=== PATIENT | female | born 1995 | race Caucasian/White ===

== ENCOUNTER 2023-02-08 23:41 | Emergency (ER) | payer SELFPAY ==
[2023-02-08 23:45] VITALS: BP 124/70; PULSE 69; RESP 18; TEMP 37.1; O2SAT 98
--- NOTE | 2023-02-08 23:55 | ED.FEMALEGU ---
HPI - Female Genitourinary General Chief complaint: Vaginal Bleeding Stated complaint: Urogenital Source: patient and family Mode of arrival: ambulatory Limitations: no limitations History of Present Illness HPI Narrative: This is a 27-year-old female that had 2 positive test at got hit in the side this afternoon by a shopping cart and has concerns about her current there has been some vaginal spotting with no vaginal bleeding no abdominal pain no nausea vomiting no flank pain no fever chills. Severity: mild Related Data Home Medications Medication Instructions Recorded Confirmed vits 75-iron 28 mg-folic 1 pkg PO DAILY 02/09/23 02/09/23 acid 800 mcg-omega-3 oral combo pack (One A Day Women's DHA) Allergies Allergy/AdvReac Type Severity Reaction Status Date / Time ciprofloxacin Allergy Swelling Verified 02/08/23 23:57 sulfamethoxazole Allergy Other Verified 02/08/23 23:57 [From Bactrim] trimethoprim [From Bactrim] Allergy Other Verified 02/08/23 23:57 Review of Systems Review of Systems: All systems reviewed & are unremarkable except as noted in HPI and below PMFSH Past Medical History Medical History Patient denies medical problems Exam Const: General: healthy appearing Nutritional Appearance: well nourished Orientation/consciousness: patient oriented x3 Limitations: no limitations HENMT: Head: normal to inspection Neck: Neck: normal visual inspection Chest: Chest palpation & inspection: normal inspection of the chest Resp: Effort & Inspection: normal respiratory effort Auscultation: clear to auscultation bilaterally Cardio: Rate: regular rate Rhythm: regular rhythm GI: GI Palp: Yes Soft to palpation Auscultation: normal bowel sounds : General: Yes bladder normal to palpation Urinary Catheter: Urinary Catheter: patent and draining Back/Spine/Pelvis: Back: no CVA tenderness Skin: General skin exam: normal color Rashes: no rashes Neuro: General: patient oriented x3 Cranial nerves: Yes Nystagmus not present Extrem: General: normal to inspection Psych: Appearance: grossly normal Mental Status: mental status grossly normal Course Course Emergency Course: quantitative HCG performed which shows that at about 4 to 6 weeks. Patient otherwise doing well Vital Signs Vital signs: Vital Signs Temperature 37.1 C 02/08/23 23:45 Pulse Rate 69 02/08/23 23:45 Respiratory Rate 18 02/08/23 23:45 Blood Pressure 124/70 02/08/23 23:45 Pulse Oximetry 98 02/08/23 23:45 Oxygen Delivery Room Air 02/08/23 23:45 Temperature 37.1 C 02/08/23 23:45 Pulse Rate 69 02/08/23 23:45 Respiratory Rate 18 02/08/23 23:45 Blood Pressure 124/70 02/08/23 23:45 Pulse Oximetry 98 02/08/23 23:45 Oxygen Delivery Room Air 02/08/23 23:45 Critical Care Time Critical Care Time Critical Care Time: No Discharge Plan Discharge Clinical Impression: Qualifiers: Weeks of gestation: less than 8 weeks Qualified Code(s): Z3A.01 - Less than 8 weeks gestation of Patient Disposition: Home, Self-Care Condition: Stable Instructions: Antibiotic Form, (ED) Additional Instructions: advised to follow with some OBGYN for further evaluation treatment. Prescriptions: No Action One A Day Women's DHA 28 mg iron- 800 mcg Combo Pack 1 pkg PO DAILY Follow-up/Referrals: UNKNOWN,DOCTOR [Primary Care Provider] - Time of Disposition: :06
== END 2023-02-09 01:20 | disposition home or self-care (01) ==
PROVIDERS: Emergency Provider Emergency Medicine
DX: O46.91 Antepartum hemorrhage, unspecified, first trimester (principal); Z3A.01 Less than 8 weeks gestation of pregnancy
CPT/HCPCS: 36415; 84702; 99283

== ENCOUNTER 2023-08-22 20:06 | Emergency (ER) | payer OTHER, SELFPAY ==
[2023-08-22 20:06] VITALS: BP 114/72; PULSE 105; RESP 20; TEMP 36.6; O2SAT 100
--- NOTE | 2023-08-22 20:11 | ED.FALL ---
HPI - Fall General Chief Complaint: Fall Stated Complaint: fall, tallbone pain, Time Seen by Provider: 08/22/23 20:09 Source: patient Mode of arrival: ambulatory Limitations: no limitations History of Present Illness HPI Narrative: 28-year-old who is 4-8 weeks ( unsure about her LMP) presents to the ER --after she fell on her back and presents with bilateral buttock pain. No other injuries noted. No head injury. No vaginal discharge. MD complaint: fall Onset (ago): hour(s) ( Fell 7 hours ago) Fall from: standing Place fall occurred: home Loss of consciousness: none Prolonged down time: no Symptoms prior to fall: none Context: tripped/slipped Location of injury: buttocks Quality: dull Associated symptoms (after fall): denies Related Data Home Medications Medication Instructions Recorded Confirmed vits 75-iron 28 mg-folic 1 pkg PO DAILY 02/09/23 08/22/23 acid 800 mcg-omega-3 oral combo pack (One A Day Women's DHA) Allergies Allergy/AdvReac Type Severity Reaction Status Date / Time ciprofloxacin Allergy Swelling Verified 02/08/23 23:57 sulfamethoxazole Allergy Other Verified 02/08/23 23:57 [From Bactrim] trimethoprim [From Bactrim] Allergy Other Verified 02/08/23 23:57 Review of Systems Review of Systems: All systems reviewed & are unremarkable except as noted in HPI and below Constitutional: Constitutional: Reports as per HPI and Reports no additional constitutional complaints Eyes: Eyes: Reports as per HPI and Reports no additional eye complaints ENT: Reports system reviewed and no additional complaints, except as documented and Reports as per HPI Cardiovascular: Cardiovascular: Reports as per HPI and Reports no additional cardiovascular complaints Respiratory: Respiratory: Reports as per HPI and Reports no additional respiratory complaints Gastrointestinal: Gastrointestinal: Reports as per HPI and Reports no additional gastrointestinal complaints Genitourinary: Genitourinary: Reports no additional female genitourinary complaints and Reports as per HPI Musculoskeletal: Musculoskeletal: Reports no additional musculoskeletal complaints and Reports as per HPI Comments: bilateral buttock pain. Denied any spinal pain. Integumentary/Breasts: Skin/Breast: Reports system reviewed and no additional complaints, except as docu Neurologic: Reports system reviewed and no additional complaints, except as documented and Reports as per HPI Psychiatric: Psychiatric: Reports no additional psychiatric complaints and Reports as per HPI Endocrine: Endocrine: Reports no additional endocrine complaints and Reports as per HPI Hematologic/Lymphatic: Hematologic/Lymphatic: Reports no additional hematologic/lymphatic complaints and Reports as per HPI Allergic/Immunologic: Allergic/Immunologic: Reports no additional allergic/immunologic complaints and Reports as per HPI [facility] Past Medical History Medical History Patient denies medical problems Exam Const: General: no acute distress Nutritional Appearance: well nourished Orientation/consciousness: patient oriented x3 Limitations: no limitations HENMT: Head: normal to inspection Ears: external ears normal Face/Nose/Sinus: Normal external nose present Face and sinus: normal facial exam Mouth: Yes Normal oral and palatal mucosa present Throat: posterior oropharynx normal Eyes: Conjunctivae: conjunctivae normal Pupils: Equal, round and reactive pupils present EOM: EOMs intact bilaterally Direct Ophthalmoscopy: no photophobia Neck: Neck: normal visual inspection and no lymphadenopathy Chest: Chest palpation & inspection: normal inspection of the chest and abnormal inspection of the chest Resp: Effort & Inspection: normal respiratory effort Auscultation: clear to auscultation bilaterally Cardio: Rate: regular rate Rhythm: regular rhythm GI:
[2023-08-22 20:58] LABS: Pregnancy On Board Control Positive; Urine Pregnancy Test Positive
[2023-08-22] MEDS: ACETAMINOPHEN 325 MG TABLET 500 MG PO (21:22)
--- NOTE | 2023-08-22 22:22 | PC.NURSE ---
2124- CALLED FATHER (JOANNA) ABOUT DC PATIENT, STATES HE WILL BE ON HIS WAY TO GET HER. 2209- CALLED FATHER (JOANNA) AGAIN ABOUT DC, STATES THAT HE MISPLACED HIS KEYS AND WILL BE ON HIS WAY TO GET PATIENT SOON HE CAN FIND THEM.
== END 2023-08-22 22:40 | disposition home or self-care (01) ==
PROVIDERS: Emergency Provider Internal Medicine Critical Care Medicine
DX: O26.891 Other specified pregnancy related conditions, first trimester (principal); R52 Pain, unspecified; W01.0XXA Fall on same level from slipping, tripping and stumbling without subsequent striking against object, initial encounter; Y92.009 Unspecified place in unspecified non-institutional (private) residence as the place of occurrence of the external cause
CPT/HCPCS: 81025; 99283; A9270

== ENCOUNTER 2024-03-24 16:26 | Outpatient (CLI) | payer OTHER, SELFPAY ==
--- NOTE | ~2024-03-24 | US_ITS ---
COMPLETE ULTRASOUND (Doppler ultrasound interrogation techniques used as needed for this exam.) Ordering provider: Dandy Ryan MD History: . Z34.90 - Encounter for supervision of normal , u... . Comparison: None. Findings: : Single intrauterine fetus with heart rate measured at 164 bpm which is within normal limits. The lie is longitudinal. Presentation is vertex. --SCREENING OF ANATOMY: Heart (4 chambers): Seen and unremarkable. Brain survey: Limited views with ventricles, cerebellum, cisterna magna and nuchal fold is not well d emonstrated. Abdomen: Unremarkable. The diaphragm, stomach, kidneys and bladder aren't demonstrated. Cord insertion: Unremarkable. 3 vessel cord: Present and unremarkable. Bladder: Highly suggestive keyhole bladder Kidneys: Minimal renal pelvis fullness. Spine: Unremarkable. Gender: -- BIOMETRICS: BPD: 78.2 mm = 31 weeks and 3 days. HC: 325.7 mm = 36 weeks and 6 days. FL: 70.3 mm = 36 weeks and 0 days. AC: 343.4 mm = 38 weeks and 2 days. HC/AC: 0.95. FL/BPD: 89.95. FL/AC: 20.48. Mean US age is 35 weeks and 5 days for an [place] on April 23, 2024. Extrapolated weight is 3017 g. EFW/GP 89.9 percentile. . Amniotic fluid volume is subjectively within normal limits. JHOAN is 5.8 cm. 5th percentile 7.9 cm. 9 55th percentile 24.9 cm. Placenta: Anterior No evidence for significant placental anomalies including placenta previa. .. IMPRESSION: Single live fetus of Vertex presentation. keyhole appearance of the urinary bladder with mild dilatation of the renal pelvis which raises the p ossibility of posterior is advised. Follow-up advised. The area of the head was not clearly seen. Reviewed, dictated and finalized at location A. IMPRESSION: Single live fetus of Vertex presentation. keyhole appearance of the urinary bladder with mild dilatation of the renal pel vis which raises the possibility of posterior is advised. Follow-up advised. The area of the head was not clearly seen.
== END 2024-03-24 16:27 | disposition home or self-care (01) ==
LOC: ANHIMG 16:33
PROVIDERS: Visit Provider Student in an Organized Health Care Education/Training Program
DX: Z34.90 Encounter for supervision of normal pregnancy, unspecified, unspecified trimester (principal)
CPT/HCPCS: 76805

== ENCOUNTER 2024-04-08 09:30 | Inpatient (IN) | payer OTHER, SELFPAY ==
[2024-04-08] VITALS (112 sets, daily range): BP systolic 94–141; BP diastolic 40–92; PULSE 65–118; RESP 18; TEMP 36.6–37.1; O2SAT 95–100; BMI 37.3
[2024-04-08 10:08] LABS: Basophils Absolute Auto 0.1 K/mm3 (0.0-0.1); Basophils Percent Auto 0.4 % (0.2-1.2); Eosinophils Absolute Auto 0.1 K/mm3 (0-0.3); Eosinophils Percent Auto 1.1 % (0-4.4); Hematocrit 35.1 % (37.0-47.0); Hemoglobin 11.4 g/dL (12.0-15.0); Immature Granulocyte Absolute 0.06 K/mm3 (0.00-0.031); Immature Granulocyte Percent A 0.5 % (0-0.5); Lymphocytes Absolute Auto 2.12 K/mm3 (0.9-3.2); Lymphocytes Percent Auto 18.1 % (18.3-44.2); Mean Corpuscular HGB Conc 32.5 g/dl (32-36); Mean Corpuscular Hemoglobin 27.1 pg (26-34); Mean Corpuscular Volume 83.4 fl (80-100); Mean Platelet Volume 9.9 fl (7.4-10.4); Monocytes Absolute Auto 0.5 K/mm3 (0.1-0.6); Monocytes Percent Auto 4.3 % (2.6-8.5); Neutrophils Absolute Auto 8.9 K/mm3 (1.3-6.7); Neutrophils Percent Auto 75.6 % (45.5-73.1); Platelet Count Result 331 k/mm3 (150-375); Red Blood Count 4.21 M/mm3 (4.2-5.4); Red Cell Distribution Width 15.8 % (11.5-14.5); White Blood Count 11.7 K/mm3 (4.5-10.0)
[2024-04-08] MEDS: LACTATED RINGERS 1,000 ML 125 ML IV CONT ×2 (10:23→13:23)
[2024-04-08] MEDS: AMPICILLIN 2 GM/NS 100 ML 2 GM/100 ML BAG IVPB (10:24)
[2024-04-08] MEDS: OXYTOCIN 30 UNITS/NS 500 ML 30 UNITS/500 ML BAG IV CONT (10:25)
--- NOTE | 2024-04-08 10:30 | LDADM ---
This patient, Brina Cuellar, was admitted to Labor/Delivery/Recovery 106 on at 08:56. Plans for labor, pain management and were discussed with patient. Patient/family oriented to hospital policies and general routines including ID bracelet, bed and alarms, visiting hours, pain management, procedures, bathroom and other care routines, personal items, smoking policy, room service/diet and guest tray routines, infant security routines, and visiting hours. Patient/Family are encouraged to report perceived risks to care and to ask questions if they do not understand what they are told or what they should do. See OBIX for further documentation.
[2024-04-08 10:57] LABS: Hepatitis B Surface Antigen Negative (Negative); Rubella IgG Antibody 45.5 IU/ML
[2024-04-08 10:58] LABS: HIV 1/2 Ab P24 Ag Result Negative (Negative)
[2024-04-08 12:10] LABS: OBXCEM ROM Plus Positive
[2024-04-08] MEDS: fentaNYL CITRATE INJ (*CRX) 100 MCG/2 ML VIAL IV PUSH (12:42)
--- NOTE | 2024-04-08 12:47 | WPDANESEPP ---
Anes - Eval Pre Procedure Procedure: Labor epidural Date/Time: 04/08/24 12:47 Surgeon: Sandra Preop Diagnosis: Pain during labor Pre Op Diagnosis: leaking Patient Data Age: 29 Gender: F Height: 1.6 m Weight: 95.45 kg Last Vital Signs Temp 36.6 C 04/08/24 10:00 Pulse 95 04/08/24 12:45 BP 123/90 04/08/24 12:45 O2 Del Method Room Air 04/08/24 10:30 Allergies Allergy/AdvReac Type Severity Reaction Status Date / Time sulfamethoxazole Allergy Intermediate mouth sores Verified 03/19/24 14:23 [From Bactrim] trimethoprim [From Bactrim] Allergy Intermediate mouth sores Verified 03/19/24 14:23 ciprofloxacin Allergy Swelling Verified 03/19/24 14:23 Home Medications Medication Instructions Recorded Confirmed Type vits 75-iron 28 mg-folic 1 pkg PO DAILY 02/09/23 04/08/24 History acid 800 mcg-omega-3 oral combo pack (One A Day Women's DHA) Laboratory Tests 04/08/24 04/08/24 09:52 11:54 WBC 11.7 H K/mm3 (4.5-10.0) RBC 4.21 M/mm3 (4.2-5.4) Hgb 11.4 L g/dL (12.0-15.0) Hct 35.1 L % (37.0-47.0) MCV 83.4 fl (80-100) MCH 27.1 pg (26-34) MCHC 32.5 g/dl (32-36) RDW 15.8 H % (11.5-14.5) Plt Count 331 k/mm3 (150-375) MPV 9.9 fl (7.4-10.4) Immature Gran % (Auto) 0.5 % (0-0.5) Neut % (Auto) 75.6 H % (45.5-73.1) Lymph % (Auto) 18.1 L % (18.3-44.2) [place] % (Auto) 4.3 % (2.6-8.5) Eos % (Auto) 1.1 % (0-4.4) Baso % (Auto) 0.4 % (0.2-1.2) Lymph # (Auto) 2.12 K/mm3 (0.9-3.2) [place] # (Auto) 0.5 K/mm3 (0.1-0.6) Eos # (Auto) 0.1 K/mm3 (0-0.3) Baso # (Auto) 0.1 K/mm3 (0.0-0.1) Abs Immat Gran (auto) 0.06 H K/mm3 (0.00-0.031) Absolute Neuts (auto) 8.9 H K/mm3 (1.3-6.7) Absolute Nucleated RBC 0.000 K/mm3 (0.0-0.012) Nucleated RBC % 0.0 % (0.0-0.2) Membranes Rupture Rom plus positive Membranes Rup Com Yes RPR Pending Hep Bs Antigen Negative (Negative) HIV 1&2 Ab/P24 Ag 4thGn Negative (Negative) Rubella IgG Antibody 45.5 IU/ML (10 - ) Blood Type O Positive Antibody Screen Negative Patient hx anesthesia problems: none Family hx anesthesia problems: none Results Review: All pre-operative results and documents have been reviewed as part of the pre-operative evaluation. [facility] Past Medical History Medical History Patient denies medical problems Surgical History Surgical History H/O shoulder surgery History of tonsillectomy Family History Family History Grandparent Carcinoma of colon Father Cerebrovascular accident Social History Social History Smoking packs per day: 1 Smoking cigarettes per day: 20.0 Years smoked: 14 Smoking pack-years: 14.00 Smoking status: Current every day smoker Tobacco type: cigarettes Second hand tobacco smoke exposure: Yes Alcohol intake: never Substance use: never Substance use type: does not use Do You Feel Safe in your Home?: Yes Lack of Transportation: YES Lack of Food: Never True Current Housing: I Have Housing Concerned About Future Housing: No Difficulty Paying Gas/Electric Bills: No Difficulty Paying for Meds: No Currently Unemployed: No Education: Trade/Vocational Certificate Difficulty w/ Childcare or Family Care: No Living arrangements: with family Additional living arrangements comments: Occupation/Education: unemployed Gender identity (if verbalized by the patient): Female Sexual Orientation (if Verbalized by the Patient): Straight or Heterosexual
[2024-04-08] MEDS: AMPICILLIN 1 GM/NS 50 ML 1 GM/50 ML BAG IVPB (15:19)
--- NOTE | 2024-04-08 17:40 | WPDHPUPDATE1 ---
History and Physical Update Update Date/Time: 04/08/24 17:40 History and Physical has been reviewed, including an updated exam of the patient. There are NO changes in the patient's condition. Risks, benefits, and alternatives have been discussed and questions answered. Patient agrees to proceed with procedure.
--- NOTE | 2024-04-08 17:40 | WPDOBADMIT ---
Obstetrics - Admit Note Admission Note: record reviewed. No pertinent additions to the history and/or any subsequent changes in the physical findings that are not consistent with the expected course of the were found. Additions to the history and/or subsequent changes in the physical findings follow. None.
[2024-04-08] MEDS: OXYTOCIN 30 UNITS/NS 500 ML 30 UNITS/500 ML BAG 125 UNITS IV CONT (18:34)
--- NOTE | 2024-04-08 18:38 | PM.OBPRVD ---
OB - Vaginal Delivery Note Procedure Delivery date: 04/08/24 Events: Other (Prolonged rupture of membranes) Induction method: None Delivery augmentation: Pitocin Delivery monitor: External FHT and External Uterine Route of delivery: Episiotomy description: None Laceration Description: None Specimen: Yes ( placenta) Quantitative Blood Loss (ml): 200 Anesthesia type: Epidural Disposition: Floor Complications: No immediate complications Narrative: patient prepped and draped in manner for this procedure. Maternal expulsive efforts readily delivered vertex over intact perineum. Rest of baby was delivered without difficulty, cord clamped, placenta delivered intact spontaneously. Uterus was well contracted with minimal bleeding. Cervix vagina vulva no laceration or tears. At this point procedure was considered terminated with immediate postoperative condition of mother and baby both excellent. Baby Weeks of gestation at delivery: 37 Infant gender: Male presentation: vertex position: Right Occiput Anterior Placenta delivery description: Spontaneous Cord Vessel Description: 3 Vessels
[2024-04-08] MEDS: BENZOCAINE 20% AER SPR (*SP) 56 GM CAN 1 SPRAY TOPICAL (20:17)
[2024-04-08] MEDS: WITCH HAZEL 40 PADS 1 PAD TOPICAL (20:17)
[2024-04-08] MEDS: IBUPROFEN 600 MG TABLET PO (20:18)
--- NOTE | 2024-04-08 20:40 | OBPPTRN ---
Patient transferred to post room #280 via w/c. Support person present. Oriented to unit, room, information board, rooming in, admission packet and security measures. Patient verbalizes understanding.
[2024-04-08] MEDS: ACETAMINOPHEN 325 MG TABLET 650 MG PO (21:05)
[2024-04-08] MEDS: HYDROcodone/acetaminophen (*CRX) 10-325 MG TABLET 1 TAB PO (21:26)
[2024-04-09 00:40] VITALS: BP 112/66; PULSE 65; RESP 16; TEMP 36.7
[2024-04-09] MEDS: HYDROcodone/acetaminophen (*CRX) 5-325 MG TABLET 1 TAB PO ×4 (04:05→17:49)
[2024-04-09 05:17] LABS: Hematocrit 34.7 % (37.0-47.0); Hemoglobin 10.8 g/dL (12.0-15.0)
[2024-04-09 07:40] VITALS: BP 113/71; PULSE 93; RESP 18; TEMP 36.9; O2SAT 99
[2024-04-09] MEDS: IBUPROFEN 600 MG TABLET PO ×2 (07:55→17:49)
--- NOTE | 2024-04-09 09:25 | PCCCNOTE ---
Recvd consult due to late care at 28 weeks, and FOB is in rehab. Met with pt. who reports will be living in [facility] [facility] with her grandmother, her aunt, her 6 year old daughter, and baby boy. Pt. reports her grandmother, aunt, and mother are all very supportive. Pt. reports has all baby supplies, and already established with [employer] [facility]. Pt. reports plans to follow up with [facility] now that baby boy is born. Pt. denies DCFS involvement and any drug use during . Pt. explains that her late care is due to pt's father having a stroke and was taking care of him. This caused pt. to be very overwhelmed and stressed out. Pt. explains that she and FOB in 2022 due to FOB using drugs. While using, he was also diagnosed with Schizophrenia. Pt. reports FOB checked himself into a 6 month inpatient mental health/substance abuse rehab; FOB has been there since 03/18/24. Pt. reports in process of getting a legal divorce from FOB. and counseling resources provided. [place]A [place].
[2024-04-09 12:21] VITALS: BP 113/77; PULSE 99; RESP 16; TEMP 36.1; O2SAT 98
[2024-04-09 13:14] LABS: Rapid Plasma Reagin Non-Reactive (NonReactive)
--- NOTE | 2024-04-09 14:24 | WPDANLDPN2 ---
Anes-Prog Note L&D Date/Time: 04/09/24 14:24 Comfortable throughout: labor and delivery Neuraxial method: epidural Epidural/Spinal procedure site: clean & non-tender Neuro status: Neuro function grossly intact. Cardiovascular status: normal Respiratory status: normal Airway patency: baseline Mental status: baseline Post-Op hydration status: normal Vital Signs: Last Vital Signs Temp 36.1 C L 04/09/24 12:21 Pulse 99 04/09/24 12:21 Resp 16 04/09/24 12:21 BP 113/77 04/09/24 12:21 Pulse Ox 98 04/09/24 12:21 O2 Del Method Room Air 04/08/24 20:50 Pain score (VAS): 10/03 I/O: Intake & Output 04/08/24 04/09/24 04/09/24 23:59 07:59 15:59 Intake Total 500 Output Total 300 Balance 200 Post-procedural complaints: none Patient feedback: Patient satisfied with anesthetic care.
[2024-04-09 19:28] VITALS: BP 106/62; PULSE 92; RESP 12; TEMP 36.7; O2SAT 99
[2024-04-10] MEDS: IBUPROFEN 600 MG TABLET PO (00:47)
[2024-04-10] MEDS: HYDROcodone/acetaminophen (*CRX) 5-325 MG TABLET 1 TAB PO (00:48)
[2024-04-10 07:55] VITALS: BP 113/76; PULSE 99; RESP 18; TEMP 37.3; O2SAT 98
--- NOTE | 2024-04-10 08:47 | PM.OBDSVD ---
DS: Admitting Diagnosis Discharge Date 04/10/2024 Admitting Diagnosis DS: Discharge Diagnosis Discharge Diagnosis (1) , delivered: Code(s): O80 - Encounter for full-term uncomplicated delivery Status: Acute OB - DS: Summary OB Procedures : None OB Procedures Intrapartum: Spontaneous Vag Delivery OB Procedures: : None Peripartum Data Laceration Description: None Episiotomy description: None Time Spent with Patient Time attestation: Total time spent providing and/or coordinating discharge services: DS: Data Data Completed and Pending Pending studies at discharge: Pending at discharge 04/08/24 18:15 Surgical [PTH] Routine Labs on day of discharge: Labs from last 24 hours 04/08/24 09:52 RPR Non-reactive Discharge Plan Discharge Discharging Clinician: Juan Flores Patient Disposition: Home, Self-Care Activity: as tolerated Diet: as tolerated Patient Instructions: Antibiotic Form, How to Stop Smoking (DC) Follow-up/Referrals: Juan Flores MD [Physician] - 3 Weeks Discharge Medications: New ibuprofen 600 mg Tablet 600 mg PO Q6H PRN (Reason: Cramping) Qty: 30 0RF Continued One A Day Women's DHA 28 mg iron- 800 mcg Combo Pack 1 pkg PO DAILY Date of admission: 04/08/24 09:30 Primary Care Provider: PHYSICIAN,CUSTOMER SERVICE TRAINER Admitting Provider: Juan Flores Attending physician on admission: Juan Flores Condition: Stable
[2024-04-11 12:43] VITALS: BP 117/81; PULSE 103; RESP 18; TEMP 36.4; O2SAT 98
== END 2024-04-10 11:55 | disposition home or self-care (01) | DRG 560 ==
LOC: ANHOBOP 18:12 → ANHLDR 18:12 → ANHOB2 20:47
PROVIDERS: Admitting Provider Obstetrics & Gynecology; Visit Provider Obstetrics & Gynecology
DX: O42.02 Full-term premature rupture of membranes, onset of labor within 24 hours of rupture (principal); Z37.0 Single live birth; Z3A.37 37 weeks gestation of pregnancy
CPT/HCPCS: 36415; 84112; 85014; 85018; 85025; 86592; 86703; 86762; 86850; 86900; 86901; 87340; 88307; A9270; G0432; J0290; J2590; J2795; J3010; J7120

== ENCOUNTER 2024-04-13 15:25 | Emergency (ER) | payer OTHER, SELFPAY ==
[2024-04-13 15:29] VITALS: BP 131/88; PULSE 104; RESP 16; TEMP 36.6; O2SAT 99
--- NOTE | 2024-04-13 15:34 | ED.ABDPAIN ---
HPI - Abdominal Pain General Chief Complaint: Urogenital-Female Stated Complaint: flank & groin pain Time Seen by Provider: 04/13/24 15:34 Source: patient Mode of arrival: ambulatory Limitations: no limitations History of Present Illness HPI narrative: 29 year old female presents to the Emergency Department complaining of left lower abdominal pain and left lower back pain. Onset yesterday. States pain has been constant. Denies vomiting, diarrhea, constipation. Has urinary frequency. Patient delivered child by vaginal delivery 5 days ago. MD elicited complaint: abdominal pain and flank pain Pertinent past history: past UTI Onset (ago): day(s) (1) Pain Consistency: constant Location: LLQ and L flank Severity: moderate Quality: aching Radiation: none Exacerbating factors: nothing Relieving factors: nothing Context: confirms other (vaginal delivery childbirth 5 days ago) Related Data Patient : No Home Medications Medication Instructions Recorded Confirmed vits 75-iron 28 mg-folic 1 pkg PO DAILY 02/09/23 04/13/24 acid 800 mcg-omega-3 oral combo pack (One A Day Women's DHA) Allergies Allergy/AdvReac Type Severity Reaction Status Date / Time sulfamethoxazole Allergy Intermediate mouth sores Verified 04/13/24 16:07 [From Bactrim] trimethoprim [From Bactrim] Allergy Intermediate mouth sores Verified 04/13/24 16:07 ciprofloxacin Allergy Swelling Verified 04/13/24 16:07 Review of Systems Review of Systems: All systems reviewed & are unremarkable except as noted in HPI and below Constitutional: Constitutional: Reports as per HPI, Denies chills and Denies fever(s) Eyes: Eyes: Reports as per HPI ENT: Reports system reviewed and no additional complaints, except as documented Cardiovascular: Cardiovascular: Reports as per HPI and Denies chest pain Respiratory: Respiratory: Reports as per HPI and Denies dyspnea Gastrointestinal: Gastrointestinal: Reports as per HPI, Reports abdominal pain, Denies diarrhea and Denies vomiting Genitourinary: Genitourinary: Reports no additional female genitourinary complaints, Reports nocturia and Reports flank pain Musculoskeletal: Musculoskeletal: Reports no additional musculoskeletal complaints and Reports back pain Integumentary/Breasts: Skin/Breast: Reports system reviewed and no additional complaints, except as docu Neurologic: Reports system reviewed and no additional complaints, except as documented Psychiatric: Psychiatric: Reports no additional psychiatric complaints Endocrine: Endocrine: Reports no additional endocrine complaints Hematologic/Lymphatic: Hematologic/Lymphatic: Reports no additional hematologic/lymphatic complaints Allergic/Immunologic: Allergic/Immunologic: Reports no additional allergic/immunologic complaints [facility] Past Medical History Medical History Patient denies medical problems Surgical History Surgical History H/O shoulder surgery History of tonsillectomy Family History Family History Grandparent Carcinoma of colon Father Cerebrovascular accident Social History Social History Smoking packs per day: 1 Smoking cigarettes per day: 20.0 Years smoked: 14 Smoking pack-years: 14.00 Smoking status: Current every day smoker Tobacco type: cigarettes Second hand tobacco smoke exposure: Yes Alcohol intake: never Substance use: never Substance use type: does not use Do You Feel Safe in your Home?: Yes Lack of Transportation: YES Lack of Food: Never True Current Housing: I Have Housing Concerned About Future Housing: No Difficulty Paying Gas/Electric Bills: No Difficulty Paying for Meds: No Currently Unemployed: No Education: Trade/Vocational Certificat
[2024-04-13 16:21] LABS: Basophils Absolute Auto 0.04 K/mm3 (0.00-0.10); Basophils Percent Auto 0.4 % (0.0-1.0); Eosinophils Absolute Auto 0.16 K/mm3 (0.02-0.50); Eosinophils Percent Auto 1.4 % (1.0-6.0); Hematocrit 35.3 % (35.0-49.0); Hemoglobin 11.4 g/dL (12.0-15.0); Immature Granulocyte Absolute 0.07 K/mm3 (0.00-0.00); Immature Granulocyte Percent A 0.6 % (0.0-0.0); Lymphocytes Absolute Auto 2.34 K/mm3 (1.10-4.50); Lymphocytes Percent Auto 20.8 % (18.0-42.0); Mean Corpuscular HGB Conc 32.3 g/dL (32-36); Mean Corpuscular Volume 83.5 fL (78.0-102.0); Mean Platelet Volume 9.3 fl (9.2-11.8); Monocytes Absolute Auto 0.42 K/mm3 (0.10-0.90); Monocytes Percent Auto 3.7 % (2.0-11.0); Neutrophils Percent Auto 73.1 % (50.0-70.0); Platelet Count Result 410 K/mm3 (150-420); Red Blood Count 4.23 M/mm3 (4.20-5.40); Red Cell Distribution Width 16.2 % (11.6-14.4); White Blood Count 11.2 K/mm3 (4.8-10.8)
[2024-04-13 16:30] LABS: Bilirubin Urine Negative (Negative); Blood Urine 3+ (Negative); Color Urine Light Yellow (Yellow); Glucose Urine UA Negative (Negative); Ketones Urine Negative (Negative); Leukocyte Esterase Ur 2+ (Negative); Nitrate Urine Negative (Negative); Protein Urine Negative (Negative); Specific Grav Ur <= 1.005 (1.010-1.020); Urobilinogen Urine 0.2 mg/dL (0.2-1.0)
[2024-04-13 16:35] LABS: Add Urine Microscopic? YES; Appearance Urine Cloudy (Clear)
[2024-04-13 16:38] LABS: Lactic Acid Reflex 0.8 mmol/L (0.4-2.0)
[2024-04-13 16:44] LABS: Amorphous Sediment Urine Few; Transitional Epi Cells Urine Few /hpf; WBC Clumps Urine Present /hpf
[2024-04-13 16:45] LABS: Alanine Aminotransferase 62 U/L (14-59); Albumin Level 2.6 g/dL (3.4-5.0); Alkaline Phosphatase 168 U/L (46-116); Anion Gap 9 mmol/L (4-12); Aspartate Amino Transferase 53 U/L (15-37); Bacteria Urine 2+ /hpf; Bilirubin,Total 0.5 mg/dL (0.00-1.00); Blood Urea Nitrogen 11 mg/dL (7-18); Calcium 8.8 mg/dL (8.5-10.1); Carbon Dioxide 25 mmol/L (21-32); Chloride 101 mmol/L (98-108); Estimated CRCL calculation 113 ml/min; Estimated Glomerular Filt Rate > 60; Glucose 79 mg/dL (70-99); Mucus Urine Moderate /lpf; Osmolality Calculated 278 mOsm/kg (285-295); Potassium 3.8 mmol/L (3.5-5.1); Sodium 135 mmol/L (136-145); Total Protein 6.6 g/dL (6.4-8.2)
[2024-04-13] MEDS: traMADol HCL (*CRX) 50 MG TABLET PO (17:18)
[2024-04-13] MEDS: NITROFURANTOIN MONOHYD MACROCR 100 MG CAP PO (17:18)
[2024-04-13 17:24] VITALS: BP 128/86; PULSE 92; RESP 20; TEMP 36.7; O2SAT 99
--- NOTE | 2024-04-17 12:16 | PC.NURSE ---
Final urine culture report: Escherichia coli, patient discharged on Macrobid 100mg, 1 po q12h 7 days. culture susceptible. no further action or treatment needed per ERP Dr. Rascon
== END 2024-04-13 17:24 | disposition home or self-care (01) ==
PROVIDERS: Emergency Provider Emergency Medicine
DX: N39.0 Urinary tract infection, site not specified (principal); F17.210 Nicotine dependence, cigarettes, uncomplicated
CPT/HCPCS: 36415; 80053; 81001; 83605; 85025; 87077; 87086; 87088; 87186; 99283; A9270

== ENCOUNTER 2025-02-19 14:14 | Outpatient (CLI) | payer OTHER, SELFPAY ==
--- NOTE | ~2025-02-19 | XR_ITS ---
XR knee LT 3V 02/19/2025 14:33 INDICATION: Left knee pain PROCEDURE: 3 views left knee COMPARISON: No prior studies for comparison. FINDINGS: Fracture, dislocation or subluxation is not identified. The soft tissues appear within norm al limits. No foreign bodies are identified. IMPRESSION: 1: NO ACUTE BONE OR JOINT ABNORMALITY IDENTIFIED. Reviewed, dictated and finalized at location A.
== END 2025-02-19 14:15 | disposition home or self-care (01) ==
PROVIDERS: PCP Family Medicine; Visit Provider Family Medicine
DX: M25.562 Pain in left knee (principal)
CPT/HCPCS: 73562

== ENCOUNTER 2025-05-28 15:46 | Outpatient (CLI) | payer OTHER, SELFPAY ==
--- NOTE | ~2025-05-28 | MR_ITS ---
EXAMINATION: MR brain/brain stem wo con DATE: 05/28/2025 16:46 INDICATION: Hydrocephalus TECHNIQUE: Magnetic resonance imaging (MRI) of the brain and brainstem was performed without intravenous contrast. Sequences included sagittal and axial T1-weighted SE, axial diffusion-weighted FS SE, axial T2*-weighted GRE, axial T2-weighted FLAIR, and axial T2-weighted FSE. Apparent diffusion coefficient (ADC) maps were created. COMPARISON: None. FINDINGS: There are no areas of restricted diffusion to suggest acute infarction. No intracranial hemorrhage or abnormal intracranial mass lesion. There are no intraparenchymal signal abnormalities seen on the other pulse sequences. The ventricles are symmetric and normal in size. There are no abnormal extra-axial fluid collections. 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 Flow voids are seen in the cerebral arteries on the T2-weighted sequences consistent with their expected patency. Mild mucosal thickening the bilateral ethmoid and right frontal sinuses. Visualized orbits and soft tissues are unremarkable. There are no areas of abnormal enhancement on the post contrast images. IMPRESSION: 1. No hydrocephalus or other acute intracranial process. 2. 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 Reviewed, dictated and finalized at location A.
--- NOTE | ~2025-05-28 | MR_ITS ---
EXAMINATION: MR knee LT wo con DATE: 05/28/2025 16:45 INDICATION: Meniscal tear at the left knee TECHNIQUE: Magnetic resonance imaging (MRI) of the left knee was performed without intravenous contrast. Sequences included coronal PD-weighted FSE, coronal PD-weighted FS FSE, sagittal T2-weighted FSE, sagittal PD-weighted FS FSE and axial PD weighted fat saturated FSE. COMPARISON: None. FINDINGS: Medial compartment: Medial meniscus is normal. Articular cartilage is normal. Lateral compartment: Lateral meniscus is normal. Articular cartilage is normal. Patellofemoral compartment: Articular cartilage is normal. Ligaments and tendons: Posterior cruciate ligament is normal. There is an intrasubstance ganglion cyst extending 3.3 cm proximal to distal within the anterior cruciate ligament and measuring 8 x 8 mm in maximal orthogonal dimensions. The surrounding the ligament fibers appear to remain intact. The medial collateral ligament and fibular collateral ligament complex are normal. The extensor mechanism is normal. The visualized medial and lateral hamstring tendons as well as the iliotibial band are normal. Fluid: Physiologic amount of fluid in the joint space. No loose osteochondral bodies identified. Osseous/other: There are couple small low signal intensity bone islands at the anterior aspect of the distal femur. No fracture or pathologic marrow replacing process. IMPRESSION: 1. Large intrasubstance ganglion cyst within the otherwise intact appearing anterior cruciate ligament. Otherwise unremarkable MRI of the left knee with normal menisci and cartilage. Reviewed, dictated and finalized at location A. IMPRESSION: 1. Large intrasubstance ganglion cyst within the otherwise intact appearing ant erior cruciate ligament. Otherwise unremarkable MRI of the left knee with abelino l menisci and cartilage.
== END 2025-05-28 15:47 | disposition home or self-care (01) ==
PROVIDERS: PCP Family Medicine; Visit Provider Family Medicine
DX: S83.207A Unspecified tear of unspecified meniscus, current injury, left knee, initial encounter (principal); G91.9 Hydrocephalus, unspecified; G93.5 Compression of brain; M67.462 Ganglion, left knee
CPT/HCPCS: 70551; 73721

== ENCOUNTER 2025-05-30 22:22 | Emergency (ER) | payer OTHER, SELFPAY ==
--- OUTSIDE RECORDS SUMMARY | 2022-10-23 08:30 | XMS_ITS | Continuity of Care Document ---
Author Organization [facility] Address [address] [place] [address] Phone Care Team Providers Care Officer Lieutenant Name Role Phone Christiane Norton PT Unavailable Unavailable Procedures Procedure Date Work Conditioning Initial 2 hrs 023 Work Conditioning add 1 hr Work Conditioning Initial 2 hrs 023 Work Conditioning add 1 hr Work Conditioning Initial 2 hrs 023 Work Conditioning add 1 hr Work Cond Initial Report Work Conditioning Initial 2 hrs 023 Advance Directives Directive Yes / No Effective Date File Name No Information Encounters Encounter Description Practice Location Reason(s) For Visit Diagnoses Date Provider Providers Copied on Encounter [facility] [address], [id number], tel:[phone] [place] No Information [place]. . Referring Provider: Kenan Garcia N [address], [place], [id number]. tel:[phone], [place], [place], [id number], tel:[phone] [place] No Information Dillan Baron. [address] [place] [address], [address], [place], [address], [place]. tel:[phone] Referring Provider: Kenan Garcia N [address], [place], [id number]. tel:[phone] [place] [address] [address], [place], [place], [id number], tel:[phone] [place] No Information [place]. . Referring Provider: Kenan Garcia N [address], [place], [address]. tel:[phone] [place], [place], [place], [id number], tel:[phone] [place] No Information Bhupinder Sifuentes. [address] [place], [address], . tel:[phone] Referring Provider: Kenan Garcia N [address], [place], [address]. tel:[phone] Family History Family Member Type Diagnosis Age At Onset No Information Payers Payer name Insurance type Covered alliance party ID Rosalie vaughan(s) [facility] [id number] Social History Type Description Quantity Date Captured Comments Sex Female Smoking Status No Information Chief Complaint And Reason For Visit No Information Reason For Referral Reason For Referral No Information History Of Present Illness Encounter Date Complaint History Of Prese nt Illness No Information Functional Status Date Functional Assessmen t No Information Instructions Date Instruction Additional Infor mation No Information Assessments Type Assessment Date No Information Patient Care Teams Name Effective Dates (start - stop) Status Members No Information
--- NOTE | 2025-05-30 22:27 | ED_ITS ---
HPI - Female Genitourinary General Chief complaint: OB/Uterine Contractions Stated complaint: Bleeding in Vaginal Area Time Seen by Provider: 05/30/25 22:24 Source: patient Limitations: no limitations History of Present Illness HPI Narrative: 30-year-old female, smoker, [id number], 8 weeks who took medication for termination presents with a 1 day history of -- severe pelvic/ lower abdominal pain -- vaginal bleeding MD elicited complaint: vaginal bleeding Onset (ago): hour(s) ( 12 hours) Location of symptoms: pelvis Severity: severe Female Urogenital Radiation: Non-Radiating Quality of pain: cramping Consistency: intermittent Vaginal discharge: other ( bloody discharge) Vaginal bleeding: bright red Exacerbating factors: none Relieving factors: none Associated symptoms: denies other symptoms and abdominal pain Treatment prior to arrival: none Patient : Yes Related Data : 6 Para: 2 Total number of abortions (spontaneous and elective): 3 Allergies Allergy/AdvReac Type Severity Reaction Status Date / Time sulfamethoxazole (From Allergy Intermediate mouth sores Verified 05/30/25 22:28 Bactrim) trimethoprim (From Bactrim) Allergy Intermediate mouth sores Verified 05/30/25 22:28 ciprofloxacin Allergy Swelling Verified 05/30/25 22:28 Review of Systems 2 Review of Systems: All systems reviewed & are unremarkable except as noted in HPI and below Constitutional: Constitutional: Reports as per HPI and Reports no additional constitutional complaints Eyes: Eyes: Reports as per HPI and Reports no additional eye complaints ENT: Reports system reviewed and no additional complaints, except as documented and Reports as per HPI Cardiovascular: Cardiovascular: Reports as per HPI and Reports no additional cardiovascular complaints Respiratory: Respiratory: Reports as per HPI and Reports no additional respiratory complaints Gastrointestinal: Gastrointestinal: Reports as per HPI and Reports no additional gastrointestinal complaints Genitourinary: Genitourinary: Reports no additional female genitourinary complaints and Reports as per HPI Musculoskeletal: Musculoskeletal: Reports no additional musculoskeletal complaints and Reports as per HPI Integumentary/Breasts: Skin/Breast: Reports system reviewed and no additional complaints, except as docu and Reports as per HPI Neurologic: Reports system reviewed and no additional complaints, except as documented and Reports as per HPI Psychiatric: Psychiatric: Reports no additional psychiatric complaints, Reports as per HPI and Reports anxiety Endocrine: Endocrine: Reports no additional endocrine complaints and Reports as per HPI Hematologic/Lymphatic: Hematologic/Lymphatic: Reports no additional hematologic/lymphatic complaints and Reports as per HPI Allergic/Immunologic: Allergic/Immunologic: Reports no additional allergic/immunologic complaints and Reports as per HPI [facility] Past Medical History Medical History Patient denies medical problems Surgical History Surgical History History of tonsillectomy H/O shoulder surgery Family History Family History Grandparent Carcinoma of colon Father Cerebrovascular accident Social History Social History Smoking packs per day: 1 Smoking cigarettes per day: 20.0 Years smoked: 14 Smoking pack-years: 14.00 Smoking status: Current every day smoker Tobacco type: cigarettes Second hand tobacco smoke exposure: Yes Alcohol intake: never Substance use: never Substance use type: does not use Do You Feel Safe in your Home?: Yes Lack of Transportation: YES Lack of Food: Never True Current Housing: I Have Housing Concerned About Future Housing: No Difficulty Paying Gas/Electric Bills: No Difficulty Paying for Meds: No Currently Unemployed: No Education: Trade/Vocational Certificate Difficulty w/ Childcare or Family Care: No Living arrangements: with family Additional living arrangements comments: Occupation/Education: unemployed Gender identity (if verbalized by the patient): Female Sexual Orientation (if Verbalized by the Patient): Straight or Heterosexual Spiritual care concerns: No Exam 2 Const: Orientation/consciousness: patient oriented x3 Limitations: no limitations Other: patient is is crying secondary to the abdominal pain HENMT: Head: normal to inspection Ears: external ears normal F lópez/Nose/Sinus: Normal external nose present Face and sinus: normal facial exam Teeth and gingiva: dentition normal Throat: posterior oropharynx normal Eyes: Conjunctivae: conjunctivae normal Pupils: Equal, round and reactive pupils present EOM: EOMs intact bilaterally Direct Ophthalmoscopy: no photophobia Neck: Neck: normal visual inspection, no lymphadenopathy and no meningeal signs Chest: Chest palpation & inspection: normal inspection of the chest Resp: Effort & Inspection: normal respiratory effort Auscultation: clear to auscultation bilaterally Cardio: Rate: regular rate Rhythm: regular rhythm GI: GI Palp: Yes Soft to palpation Auscultation: normal bowel sounds O ther: no tenderness/ rigidity /rebound. : General: Yes no CVA tenderness Other: Vaginal bleeding. Back/Spine/Pelvis: Back: no CVA tenderness Skin: General skin exam: normal color Rashes: no rashes Wounds: no wounds Neuro: General: patient oriented x3, moves all extremities, no meningeal signs, no focal motor deficits and CN's II-XI intact bilaterally Cranial nerves: Yes Nystagmus not present Speech: normal speech Gait exam (Neuro): Normal gait present Extrem: General: normal to inspection and no clubbing, cyanosis or edema Psych: Appearance: grossly normal Mental Status: mental status grossly normal Affect: normal affect Course Course Emergency Course: Medical termination of miscarriage-- pain resolved with Dilaudid. Blood work looks unremarkable. Abdominal palpation is unremarkable. Vital Signs Vital signs: Vital Signs Temperature 37.0 C 05/30/25 22:30 Pulse Rate 83 05/30/25 22:30 Respiratory Rate 20 05/30/25 22:30 Blood Pressure 102/79 05/30/25 22:30 Pulse Oximetry 99 05/30/25 22:30 Oxygen Delivery Room Air 05/30/25 22:30 Temperature 37.0 C 05/30/25 22:30 Pulse Rate 83 05/30/25 22:30 Respiratory Rate 20 05/30/25 22:30 Blood Pressure 102/79 05/30/25 22:30 Pulse Oximetry 99 05/30/25 22:30 Oxygen Delivery Room Air 05/30/25 22:30 MDM - Female Genitourinary MDM Narrative Medical decision making narrative: miscarriage medical termination of Differential Diagnosis Differential diagnosis: Likely dysmenorrhea Lab Data Attestation: I reviewed the patient's lab results. 05/30/25 22:52 05/30/25 22:51 Labs: Lab Results 05/30/25 05/30/25 Range/Units 22:51 22:52 WBC 13.5 H (4.8-10.8) K/mm3 RBC 4.69 (4.20-5.40) M/mm3 Hgb 13.2 (12.0-15.0) g/dL Hct 40.9 (35.0-49.0) % MCV 87.2 (78.0-102.0) fL MCH 28.1 (27.0-31.0) pg MCHC 32.3 (32-36) g/dL RDW 15.5 H (11.6-14.4) % Plt Count 378 (150-420) K/mm3 MPV 9.7 (9.2-11.8) fl Immature Gran % (Auto) 0.4 H (0.0-0.0) % Neut % (Auto) 68.7 (50.0-70.0) % Lymph % (Auto) 21.6 (18.0-42.0) % Stewart % (Auto) 6.3 (2.0-11.0) % Eos % (Auto) 2.6 (1.0-6.0) % Baso % (Auto) 0.4 (0.0-1.0) % Lymph # (Auto) 2.92 (1.10-4.50) K/mm3 Stewart # (Auto) 0.85 (0.10-0.90) K/mm3 Eos # (Auto) 0.35 (0.02-0.50) K/mm3 Baso # (Auto) 0.06 (0.00-0.10) K/mm3 Abs Immat Gran (auto) 0.05 H (0.00-0.00) K/mm3 Absolute Neuts (auto) 9.27 H (1.70-7.20) K/mm3 Absolute Nucleated RBC 0.00 (0.00-0.00) K/mm3 Nucleated RBC % 0.0 (0-0.0) % PT 10.7 (9.50-12.1) Seconds INR 1.0 APTT 26.8 (23.9-30.70) Sec Sodium 136 L (137-145) mmol/L Potassium 4.0 (3.4-5.0) mmol/L Chloride 101 (98-107) mmol/L Carbon Dioxide 24 (22-30) mmol/L Anion Gap 11 (4-12) mmol/L BUN 11 (7-17) mg/dL Creatinine 0.57 L (0.7-1.0) mg/dL Estim Creat Clear Calc 126 ml/min Estimated GFR > 60 (59 - ) Glucose 92 (65-110) mg/dL Calculated Osmolality 281 L (285-295) mOsm/kg Calcium 9.9 (8.4-10.2) mg/dL Total Bilirubin 0.3 (0.2-1.3) mg/dL AST 23 (14-36) U/L ALT 15 (6-35) U/L Alkaline Phosphatase 83 (38-126) U/L Total Protein 7.2 (6.3-8.2) g/dL Albumin 4.3 (3.5-5.1) g/dL Discharge Plan Discharge Clinical Impression: Complication after medical termination of Patient Disposition: Home Condition: Stable Instructions: Antibiotic Form, Miscarriage (ED) Patient Language: Croatian Prescriptions: New hydrocodone-acetaminophen 5-325 mg tablet 1 tablet PO Q8H PRN (Reason: pain) Qty: 5 0RF No Action sumatriptan succinate 50 mg tablet See Rx Instructions .ROUTE .COMPLEX Qty: 9 1RF Dose Instruction: 1 TAB AT ONSET OF HEADACHE MAY REPEAT ONCE AFTER AT LEAST 2 HOUR IF NO RELIEF-MAX PER 24 HOUR: 4 TAB Rx Instructions: 1 TAB AT ONSET OF HEADACHE MAY REPEAT ONCE AFTER AT LEAST 2 HOUR IF NO RELIEF-MAX PER 24 HOUR: 4 TAB sertraline 50 mg tablet See Rx Instructions .ROUTE .COMPLEX Qty: 90 0RF Dose Instruction: TAKE 1 TABLET BY MOUTH EVERY DAY Rx Instructions: TAKE 1 TABLET BY MOUTH EVERY DAY Follow-up/Referrals: Riley Narayanan DO [Primary Care Provider, Family Practice] Time of Disposition: 23:33
[2025-05-30 22:30] VITALS: BP 102/79; PULSE 83; RESP 20; TEMP 37; O2SAT 99
[2025-05-30] MEDS: ONDANSETRON HCL ODT 4 MG TABLET PO (22:42)
[2025-05-30] MEDS: HYDROmorphone HCL INJ (*CRX) 2 MG/ML VIAL 0.5 MG IV PUSH (22:45)
[2025-05-30 23:10] LABS: Hematocrit 40.9 % (35.0-49.0); Hemoglobin 13.2 g/dL (12.0-15.0); Immature Granulocyte Percent A 0.4 % (0.0-0.0); Lymphocytes Absolute Auto 2.92 K/mm3 (1.10-4.50); Mean Corpuscular HGB Conc 32.3 g/dL (32-36); Mean Corpuscular Hemoglobin 28.1 pg (27.0-31.0); Mean Corpuscular Volume 87.2 fL (78.0-102.0); Nucleated Red Blood Cells Absolute Auto 0.00 K/mm3 (0.00-0.00); Nucleated Red Blood Cells Perc 0.0 % (0-0.0); Platelet Count Result 378 K/mm3 (150-420); Red Blood Count 4.69 M/mm3 (4.20-5.40); White Blood Count 13.5 K/mm3 (4.8-10.8)
[2025-05-30 23:19] LABS: Alanine Aminotransferase 15 U/L (6-35); Albumin Level 4.3 g/dL (3.5-5.1); Alkaline Phosphatase 83 U/L (38-126); Anion Gap 11 mmol/L (4-12); Aspartate Amino Transferase 23 U/L (14-36); Bilirubin,Total 0.3 mg/dL (0.2-1.3); Blood Urea Nitrogen 11 mg/dL (7-17); Calcium 9.9 mg/dL (8.4-10.2); Carbon Dioxide 24 mmol/L (22-30); Chloride 101 mmol/L (98-107); Estimated CRCL calculation 126 ml/min; Estimated Glomerular Filt Rate > 60; Glucose 92 mg/dL (65-110); Osmolality Calculated 281 mOsm/kg (285-295); Potassium 4.0 mmol/L (3.4-5.0); Sodium 136 mmol/L (137-145); Total Protein 7.2 g/dL (6.3-8.2)
[2025-05-30 23:22] LABS: INR 1.0; Partial Thromboplastin Time 26.8 Sec (23.9-30.70); Prothrombin Time 10.7 Seconds (9.50-12.1)
--- NOTE | 2025-05-30 23:32 | PC.NURSE ---
Pt resting, no further c/o pain. [facility] outreach notified per protocol for consultation. POC per Dr Lin to d/c home. Explained information about pt to outreach line. Will call back from OB center shrtly.
[2025-05-30 23:38] VITALS: BP 120/81; PULSE 85; RESP 20; O2SAT 98
[2025-05-30] MEDS: KETOROLAC 30 MG/ML VIAL (*BKC) IM (23:59)
--- NOTE | 2025-05-31 00:11 | PC.NURSE ---
Pt given phone # of Dr to f/u w/ at [facility] if needed for further issues.
[2025-05-31 00:17] VITALS: BP 119/78; PULSE 84; RESP 18; TEMP 36.6; O2SAT 98
== END 2025-05-31 00:17 | disposition home or self-care (01) ==
PROVIDERS: Emergency Provider Internal Medicine Critical Care Medicine; PCP Family Medicine
DX: O04.80 (Induced) termination of pregnancy with unspecified complications (principal); O99.331 Smoking (tobacco) complicating pregnancy, first trimester; F17.210 Nicotine dependence, cigarettes, uncomplicated; Z3A.08 8 weeks gestation of pregnancy
CPT/HCPCS: 36415; 80053; 85025; 85610; 85730; 96372; 96374; 99284; A9270; J1171; J1885